=== PATIENT | male | born 1980 | race African-American/Black ===

== ENCOUNTER 2017-10-08 19:44 | Inpatient (IN) | payer SELFPAY ==
[~2017-10-08] VITALS: Ht 188 cm; Wt 90.0 kg
[~2017-10-08 19:44] MED LIST: AMLO10 PO; ASPI325T PO; CARV12.5 PO; CLON.1 PO; CYCL-36 PO; ISOS60 PO
[2017-10-08 19:50] VITALS: BP 264/132; PULSE 120; RESP 30; O2SAT 93
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
[2017-10-08] MEDS ORDERED: NITROGLYCERIN 2% OINT 1 GM PACKET TOP ONE (20:00)
[2017-10-08] MEDS ORDERED: SODIUM CHLORIDE 0.9% FLUSH 10 ML FLUSH IVF PRN (20:00)
[2017-10-08] MEDS ORDERED: hydrALAZINE HCL 20 MG/ML VIAL IV PUSH ONE (20:00)
[2017-10-08] MEDS ORDERED: RESP: ALBUTEROL 2.5 MG/IPRATROPIUM 0.5 MG NEB (SCH) INH ONE (20:00)
[2017-10-08] MEDS ORDERED: LORazepam 2 MG/ML VIAL IV PUSH ONE (20:15)
[2017-10-08 20:26] VITALS: BP_SYST 247; BP_SYST 264; BP_DIAS 132; BP_DIAS 139
[2017-10-08] MEDS ORDERED: niCARdipine INJ 25 MG in SODIUM CHLOR 0.9% 250 ML INJ 250 ML IV PRN (20:30)
[2017-10-08] MEDS ORDERED: niCARdipine INJ 25 MG in SODIUM CHLOR 0.9% 250 ML INJ 240 ML IV ONE (20:30)
--- NOTE | 2017-10-08 20:44 | RADRPT ---
EXAM DATE/TIME: 10/08/2017 20:16 [facility] COMPARISON: CHEST SINGLE AP, December 17, 2015, 12:26. INDICATIONS : Chest pain and shortness of breath. MEDICAL HISTORY : None. SURGICAL HISTORY : None. ENCOUNTER: Initial ACUITY: 1 day PAIN SCORE: 10/10 LOCATION: chest FINDINGS: Focal consolidation is not seen. There is no appreciable pleural effusion for technique. Heart and m ediastinum are unremarkable. There is mild haziness involving the lung bases and the possibility of m ild degree of pulmonary edema difficult to exclude. CONCLUSION: Question of mild haziness lung bases and possibility of mild case of pulmonary edema is d ifficult to exclude. Tariq Becker MD on October 08, 2017 at 20:41 Board Certified Radiologist. This report was verified electronically.
[2017-10-08 20:48] LABS: AUTOMATED NEUTROPHIL # 7.8 TH/MM3 (1.8-7.7); BASOPHIL % 0.5 % (0.0-2.0); EOSINOPHIL % 2.5 % (0.0-4.0); HEMATOCRIT 39.8 % (39.0-51.0); HEMOGLOBIN 13.6 GM/DL (13.0-17.0); LYMPH % 13.5 % (9.0-44.0); LYMPHOCYTE # 1.4 TH/MM3 (1.0-4.8); MEAN CELL VOLUME 86.5 FL (80.0-100.0); MEAN CORPUSCULAR HEMOGLOBIN 29.4 PG (27.0-34.0); MEAN PLATELET VOLUME 9.2 FL (7.0-11.0); MONO % 5.6 % (0.0-8.0); MONOCYTE # 0.6 TH/MM3 (0-0.9); NEUT % 77.9 % (16.0-70.0); PLATELET COUNT 226 TH/MM3 (150-450); RED CELL DISTRIBUTION WIDTH 14.2 % (11.6-17.2); WHITE BLOOD COUNT 10.1 TH/MM3 (4.0-11.0)
[2017-10-08 20:49] LABS: BASOPHIL # 0.1 TH/MM3 (0-0.2); EOSINOPHIL # 0.3 TH/MM3 (0-0.4)
[2017-10-08 20:52] LABS: PROTHROMBIN TIME - PATIENT 9.8 SEC (9.8-11.6)
[2017-10-08 21:05] LABS: BICARBONATE 28.7 MEQ/L (21.0-32.0); CALCIUM 9.1 MG/DL (8.5-10.1); CREATININE 5.83 MG/DL (0.60-1.30); MAGNESIUM 2.3 MG/DL (1.5-2.5)
[2017-10-08 21:11] LABS: TROPONIN I 0.19 NG/ML (0.02-0.05)
[2017-10-08 23:39] VITALS: BP 187/109; PULSE 107; RESP 18; TEMP 97.7; O2SAT 97
[2017-10-09] VITALS (13 sets, daily range): BP systolic 141–205; BP diastolic 73–126; PULSE 72–105; RESP 18–25; TEMP 97.8–98.2; O2SAT 94–100
[2017-10-09] MEDS ORDERED: CARVEDILOL 12.5 MG TAB PO ONE
[2017-10-09] MEDS ORDERED: ISOSORBIDE MONONITRATE 60 MG TAB PO ONE
[2017-10-09] MEDS ORDERED: FUROSEMIDE 40 MG/4 ML VIAL IV PUSH ONE (00:15)
[2017-10-09] MEDS ORDERED: MISCELLANEOUS NURSING INFORMATION XX SCH (00:15)
[2017-10-09] MEDS ORDERED: SODIUM CHLORIDE 0.9% FLUSH 10 ML FLUSH IV FLUSH PRN (00:15)
[2017-10-09] MEDS ORDERED: RESP: ALBUTEROL 2.5 MG/3 ML NEB (PRN) INH (00:15)
[2017-10-09] MEDS ORDERED: MAGNESIUM HYDROXIDE SUSP 30 ML CUP PO PRN (00:15)
[2017-10-09] MEDS ORDERED: SENNOSIDES 8.6 MG TAB PO PRN (00:15)
[2017-10-09] MEDS ORDERED: ONDANSETRON HCL 4 MG/2 ML VIAL IV PUSH PRN (00:15)
[2017-10-09] MEDS ORDERED: BISACODYL 10 MG SUPP RECTAL PRN (00:15)
[2017-10-09] MEDS ORDERED: ACETAMINOPHEN 325 MG TAB PO PRN (00:15)
[2017-10-09] MEDS ORDERED: LACTULOSE SYRUP 20 GM/30 ML CUP PO PRN (00:15)
[2017-10-09] MEDS ORDERED: CHLORHEXIDINE GLUCONATE 2 % 1 PACK (2 CLOTHS) TOP PRN (00:15)
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
[2017-10-09] MEDS ORDERED: ASPIRIN 81 MG CHEW TAB CHEW ONE (01:15)
[2017-10-09] MEDS: ACETAMINOPHEN/HYDROcodone 325 MG/5 MG TAB PO PRN ×3 (01:45→19:36)
[2017-10-09] MEDS: NITROGLYCERIN 2% OINT 1 GM PACKET TOPICAL SCH ×4 (01:46→17:37)
[2017-10-09] MEDS: RESP: ALBUTEROL 2.5 MG/IPRATROPIUM 0.5 MG NEB (SCH) INH ×4 (02:58→20:39)
[2017-10-09 03:46] LABS: CREATININE, RANDOM URINE 45.1 MG/DL
[2017-10-09] MEDS: CHLORHEXIDINE GLUCONATE 2 % 1 PACK (2 CLOTHS) TOP SCH (04:00)
[2017-10-09] MEDS ORDERED: RESP: ALBUTEROL 2.5 MG/IPRATROPIUM 0.5 MG NEB (SCH) NEB (04:00)
[2017-10-09] MEDS: HEPARIN SODIUM - SQ 10,000 UNITS/ML VIAL SQ SCH ×2 (06:17→17:37)
[2017-10-09] MEDS: ISOSORBIDE MONONITRATE 60 MG TAB PO SCH ×2 (06:17→19:36)
[2017-10-09] MEDS ORDERED: niCARdipine INJ 25 MG in SODIUM CHLOR 0.9% 250 ML INJ 240 ML IV PRN ×3 (06:30)
[2017-10-09] MEDS: FAMOTIDINE 20 MG TAB PO SCH ×2 (08:12→19:36)
[2017-10-09] MEDS: DOCUSATE SODIUM 50 MG/SENNA 8.6 MG TAB PO SCH ×2 (08:13→19:30)
[2017-10-09] MEDS: SODIUM CHLORIDE 0.9% FLUSH 10 ML FLUSH IV FLUSH SCH ×2 (08:13→19:39)
[2017-10-09] MEDS: CARVEDILOL 12.5 MG TAB PO SCH ×2 (08:13→19:36)
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
[2017-10-09 10:19] LABS: BICARBONATE 29.3 MEQ/L (21.0-32.0); CALCIUM 8.5 MG/DL (8.5-10.1); CREATININE 5.14 MG/DL (0.60-1.30)
[2017-10-09 10:46] LABS: ALBUMIN 3.1 GM/DL (3.4-5.0); DIRECT BILIRUBIN ADULT 0.2 MG/DL (0.0-0.2)
[2017-10-09 10:55] LABS: CHOLESTEROL/ HDL RATIO 2.82 RATIO; HDL CHOLESTEROL 57.6 MG/DL (40.0-60.0); INDIRECT BILIRUBIN 0.3 MG/DL (0.0-0.8); TOTAL BILIRUBIN ADULT 0.5 MG/DL (0.2-1.0); TOTAL PROTEIN 6.9 GM/DL (6.4-8.2)
[2017-10-09 10:58] LABS: TROPONIN I 0.65 NG/ML (0.02-0.05)
--- NOTE | 2017-10-09 12:05 | EKG ---
Date Performed: 10/08/2017 Time Performed: 20:41:45 PTAGE: 36 years EKG: SINUS TACHYCARDIA POSSIBLE RIGHT ATRIAL ENLARGEMENT POSSIBLE LEFT ATRIAL ENLARGEMENT LEFT V ENTRICULAR HYPERTROPHY AND ST-T CHANGE ABNORMAL ECG Compared to PREVIOUS TRACING , the LVH changes are new and the atrial abnormality is somewhat more pr ominent. PREVIOUS TRACIN12/17/2015 23.25 DOCTOR: Cisco Rivero Interpretating Date/Time 10/09/2017 12:04:51
[2017-10-09] MEDS ORDERED: POTASSIUM CHLORIDE 25 MEQ EFFERVESCENT TAB PO ONE (12:30)
[2017-10-09 15:16] LABS: BICARBONATE 27.7 MEQ/L (21.0-32.0); CALCIUM 8.6 MG/DL (8.5-10.1); CREATININE 5.1 MG/DL (0.60-1.30)
[2017-10-09] MEDS: hydrALAZINE HCL 20 MG/ML VIAL IV PUSH PRN ×2 (16:03→18:33)
[2017-10-09] MEDS: LABETALOL HCL 100 MG/20 ML VIAL IV PUSH PRN ×3 (16:03→18:33)
[2017-10-10] VITALS (26 sets, daily range): BP systolic 144–192; BP diastolic 68–111; PULSE 74–95; RESP 16–21; TEMP 98–98.2; O2SAT 96–99
[2017-10-10] MEDS: NITROGLYCERIN 2% OINT 1 GM PACKET TOPICAL SCH ×5 (00:39→23:23)
[2017-10-10] MEDS: diphenhydrAMINE HCL 25 MG CAP PO PRN ×3 (01:20→18:37)
[2017-10-10] MEDS: RESP: ALBUTEROL 2.5 MG/IPRATROPIUM 0.5 MG NEB (SCH) INH ×4 (03:17→20:39)
[2017-10-10] MEDS: LABETALOL HCL 100 MG/20 ML VIAL IV PUSH PRN ×6 (03:23→22:20)
[2017-10-10] MEDS: CHLORHEXIDINE GLUCONATE 2 % 1 PACK (2 CLOTHS) TOP SCH (03:34)
[2017-10-10 04:00] LABS: AUTOMATED NEUTROPHIL # 5.5 TH/MM3 (1.8-7.7); BASOPHIL % 0.4 % (0.0-2.0); EOSINOPHIL # 0.1 TH/MM3 (0-0.4); EOSINOPHIL % 1.4 % (0.0-4.0); HEMATOCRIT 34.4 % (39.0-51.0); HEMOGLOBIN 11.8 GM/DL (13.0-17.0); LYMPH % 13.5 % (9.0-44.0); MEAN CELL VOLUME 85.7 FL (80.0-100.0); MEAN CORPUSCULAR HEMOGLOBIN 29.5 PG (27.0-34.0); MEAN CORPUSCULAR HGB CONC 34.4 % (32.0-36.0); MEAN PLATELET VOLUME 8.6 FL (7.0-11.0); MONO % 10.3 % (0.0-8.0); MONOCYTE # 0.8 TH/MM3 (0-0.9); NEUT % 74.4 % (16.0-70.0); PLATELET COUNT 185 TH/MM3 (150-450); RED BLOOD COUNT 4.02 MIL/MM3 (4.50-5.90); RED CELL DISTRIBUTION WIDTH 13.8 % (11.6-17.2); WHITE BLOOD COUNT 7.4 TH/MM3 (4.0-11.0)
[2017-10-10 04:21] LABS: BICARBONATE 26.6 MEQ/L (21.0-32.0); CALCIUM 8.5 MG/DL (8.5-10.1); CREATININE 5.11 MG/DL (0.60-1.30)
[2017-10-10] MEDS: ISOSORBIDE MONONITRATE 60 MG TAB PO SCH ×2 (06:24→20:12)
[2017-10-10] MEDS: HEPARIN SODIUM - SQ 10,000 UNITS/ML VIAL SQ SCH ×2 (06:24→17:15)
[2017-10-10] MEDS: FAMOTIDINE 20 MG TAB PO SCH ×2 (08:19→20:13)
[2017-10-10] MEDS: SODIUM CHLORIDE 0.9% FLUSH 10 ML FLUSH IV FLUSH SCH ×2 (08:19→20:18)
[2017-10-10] MEDS: CARVEDILOL 12.5 MG TAB PO SCH ×2 (08:19→20:12)
[2017-10-10] MEDS: DOCUSATE SODIUM 50 MG/SENNA 8.6 MG TAB PO SCH ×2 (08:19→20:12)
[2017-10-10] MEDS ORDERED: POTASSIUM CHLORIDE 10 MEQ CONTROLLED RELEASE TAB PO ONE ×2 (09:00)
--- NOTE | 2017-10-10 09:33 | HHI.PR ---
Subjective Remarks c/o swelling of glands on BL cheeks just before the ears Denies tenderness, denies fevers, chills. Objective Vitals Vital Signs Date Time Temp Pulse Resp B/P (MAP) Pulse Ox O2 Delivery O2 Flow Rate FiO2 10/10/17 06:08 84 10/10/17 05:18 75 10/10/17 04:23 80 10/10/17 03:47 144/82 (102) 10/10/17 03:35 98.0 79 20 180/106 (130) 96 10/10/17 03:35 77 10/10/17 02:48 77 10/10/17 01:07 76 10/10/17 00:02 83 10/09/17 23:15 84 10/09/17 23:15 98.2 82 18 159/87 (111) 100 10/09/17 20:00 98.2 88 20 149/73 (98) 99 10/09/17 20:00 88 10/09/17 16:00 74 10/09/17 16:00 98.1 79 20 205/126 (152) 98 10/09/17 12:00 97.8 72 24 165/98 (120) 100 10/09/17 12:00 72 I/O 10/09/17 10/09/17 10/09/17 10/10/17 10/10/17 10/10/17 07:00 15:00 23:00 07:00 15:00 23:00 Intake Total 2400 ml 960 ml 960 ml Output Total 6050 ml 450 ml 340 ml Balance -3650 ml 510 ml 620 ml Intake Oral 1200 ml 960 ml 960 ml IV Total 1200 ml Output Urine Total 6050 ml 450 ml 340 ml # Voids 3 # Bowel Movements 0 0 0 Result Diagram: 10/10/17 0327 10/10/17 0327 Imaging Last Impressions Renal Ultrasound 10/09/17 0000 Signed Impressions: Service Date/Time: Monday, October 09, 2017 08:21 - CONCLUSION: 1. Kidneys are borderline echogenic which can be seen with medical renal disease. 2. Simple right renal cyst. 3. Possible nonobstructing calculus left kidney measures 3 mm. Onofre Salinas MD Chest X-Ray 10/08/171953 Signed Impressions: Service Date/Time: Sunday, October 08, 2017 20:16 - CONCLUSION: Question of mild haziness lung bases and possibility of mild case of pulmonary edema is difficult to exclude. Tariq Becker MD Objective Remarks AAOx3 Enlarged aprotid glands which are rubbery to palpation and non tender. Clear lungs BL S1S2 RRR, no MRG soft abdomen, BS (+) no edema in lower extremities Medications and IVs Current Medications Medications (Trade) Dose Ordered Sig/Jossue Route Start Time Stop Time Status Last Admin (Nitroglycerin 2% Oint) 1 inch Q6HR TOPICAL 10/09/17 00:00 10/10/17 11:25 (Norvasc) 10 mg DAILY PO 10/09/17 09:00 10/10/17 08:18 (Coreg) 25 mg Q12HR PO 10/09/17 09:00 10/10/17 08:19 (Imdur) 60 mg BID@07,21 PO 10/09/17 07:00 10/10/17 06:24 (NS Flush) 2 ml UNSCH PRN IV FLUSH 10/09/17 00:15 (NS Flush) 2 ml BID IV FLUSH 10/09/17 09:00 10/10/17 08:19 (Tylenol) 650 mg Q6H PRN PO 10/09/17 00:15 10/09/17 13:02 ([place] 5-325 Mg) 1 tab Q4H PRN PO 10/09/17 00:15 10/09/17 19:36 (Pepcid) 20 mg Q12HR PO 10/09/17 09:00 10/10/17 08:19 (Zofran Inj) 4 mg Q6H PRN IV PUSH 10/09/17 00:15 10/09/17 08:17 (Duoneb Neb) 1 ampule Q6HR NEB INH 10/09/17 04:00 10/10/17 09:12 (Albuterol Neb) 2.5 mg Q2HR NEB PRN INH 10/09/17 00:15 (Heparin Inj) 5,000 units Q12H SQ 10/09/17 06:00 10/10/17 06:24 Miscellaneous Information 1 Q361D XX 10/09/17 00:15 10/09/17 00:15 (Chlorhexidine 2% Cloth) 3 pack Taper DAILY@04 [facility] 10/09/17 04:00 10/05/18 03:59 10/09/17 04:00 (Chlorhexidine 2% Cloth) 3 pack UNSCH PRN TOP 10/09/17 00:15 (Shayna-Colace) 1 tab BID PO 10/09/17 09:00 (Milk Of Magnesia Liq) 30 ml Q12H PRN PO 10/09/17 00:15 (Senokot) 17.2 mg Q12H PRN PO 10/09/17 00:15 (Dulcolax Supp) 10 mg DAILY PRN RECTAL 10/09/17 00:15 (Lactulose Liq) 30 ml DAILY PRN PO 10/09/17 00:15 (Trandate Inj) 20 mg Q15M PRN IV PUSH 10/09/17 09:45 10/10/17 09:52 (Apresoline Inj) 10 mg Q30M PRN IV PUSH 10/09/17 09:45 10/09/17 18:33 (Benadryl) 25 mg Q6H PRN PO 10/10/17 01:15 10/10/17 08:19 (Aldactone) 25 mg DAILY PO 10/10/17 12:00 10/10/17 11:25 Urinary Catheter: No Vascular Central Line Catheter: No A/P Problem List: (1) Hypertensive emergency ICD Code: I16.1 - Hypertensive emergency Status: Acute Plan: The patient initially was admitted to the intensive care unit and started on Cardene drip to target initial reduction mean arterial pressure of 25 -30%, MIP less than 120. Patient also started on nitroglycerin paste. Imdur, Norvasc, Coreg resumed. Chest x-ray showed pulmonary edema, status post Lasix 40 mg IV. EKG sinus tachycardia rate of 106. LVH by voltage criteria. Nonspecific ST changes in V5 V6. No ST elevation. Echo 03/27/15-03/27/15ejection fraction 30-35% with diffuse hypokinesis. Mild to moderate MR. Exercise Stress 03/18/12negative. Prior workup for secondary hypertension included negative workup for pheo, normal aldosterone and renin. Consider imaging for renal artery stenosis. Urine toxicology screen is so far positive for cannabinoids. Continue current antihypertensive medications with amlodipine, carvedilol, spironolactone. (2) Parotitis ICD Code: K11.20 - Sialoadenitis, unspecified Plan: The patient has painless swelling of bilateral parotid glands. Suspect likely due to a sialolith. We'll consult ENT for further recommendations. (3) Hypokalemia ICD Code: E87.6 - Hypokalemia Status: Acute Plan: Asher 3.1. Replace orally and continue to monitor BMP. Check magnesium. (4) Acute kidney injury ICD Code: N17.9 - Acute kidney injury Status: Acute Plan: Flagyl consulted. Creatinine elevated at 5.1. Patient has chronic kidney disease stage IV with previous baseline creatinine of 2.07 in 2016. Acute kidney injury on chronic kidney disease stage IV versus progressive kidney disease secondary to hypertensive nephropathy. Kidney ultrasound and consistent with medical renal disease area there is a simple right renal cyst. Possible nonobstructing calculus in the left kidney which measures 3 mm. (5) Hyperglycemia ICD Code: R73.9 - Hyperglycemia, unspecified Status: Acute Plan: Blood glucose has been slightly elevated. I will check hemoglobin A1c. Assessment and Plan GI prophylaxis: PPI. DVT prophylaxis: SCDs. Discharge Planning ENT consulted. awaiting clinical improvement. Kameron Cooper MD Oct 10, 2017 09:33
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
[2017-10-10] MEDS: SPIRONOLACTONE 25 MG TAB PO SCH (11:25)
[2017-10-10 11:59] LABS: BACTERIA, URINE OCC /hpf; BILIRUBIN, URINE NEG (NEG); BLOOD, URINE NEG (NEG); GLUCOSE,URINE TRACE mg/dL (NEG); KETONE, URINE NEG (NEG); MUCUS URINE FEW /lpf (OCC); NITRITE,URINE NEG (NEG); SQUAMOUS EPITHELIAL CELL URINE <1 /hpf (0-5); URINE COLOR YELLOW (YELLW/STRAW); URINE LEUKOCYTE ESTERASE MOD (NEG); WHITE BLOOD CELL CLUMPS RARE
[2017-10-10 12:04] LABS: CREATININE, RANDOM URINE 169.5 MG/DL
[2017-10-10 13:12] LABS: COMPLEMENT C3 106 MG/DL (90-180); COMPLEMENT C4 33 MG/DL (10-40)
[2017-10-10 16:19] LABS: HEPATITIS A AB IGM NEGATIVE (NEGATIVE); HEPATITIS B CORE AB IGM NEGATIVE (NEGATIVE); HEPATITIS B SURFACE ANTIGEN NEGATIVE (NEGATIVE); HEPATITIS C AB IgG NEGATIVE (NEGATIVE)
[2017-10-10] MEDS: hydrALAZINE HCL 20 MG/ML VIAL IV PUSH PRN (17:19)
[2017-10-10] MEDS: ACETAMINOPHEN/HYDROcodone 325 MG/5 MG TAB PO PRN ×2 (18:37→22:19)
[2017-10-11] VITALS (25 sets, daily range): BP systolic 144–191; BP diastolic 82–117; PULSE 75–97; RESP 16–20; TEMP 97.9–98.3; O2SAT 97–99
[2017-10-11] MEDS: RESP: ALBUTEROL 2.5 MG/IPRATROPIUM 0.5 MG NEB (SCH) INH ×4 (03:34→20:28)
[2017-10-11] MEDS: CHLORHEXIDINE GLUCONATE 2 % 1 PACK (2 CLOTHS) TOP SCH (04:00)
[2017-10-11 04:22] LABS: HEMATOCRIT 34.8 % (39.0-51.0); HEMOGLOBIN 11.9 GM/DL (13.0-17.0); MEAN CELL VOLUME 86.1 FL (80.0-100.0); MEAN CORPUSCULAR HEMOGLOBIN 29.3 PG (27.0-34.0); PLATELET COUNT 183 TH/MM3 (150-450); RED BLOOD COUNT 4.05 MIL/MM3 (4.50-5.90); WHITE BLOOD COUNT 6.5 TH/MM3 (4.0-11.0)
[2017-10-11 04:45] LABS: BICARBONATE 26.8 MEQ/L (21.0-32.0); CALCIUM 8.8 MG/DL (8.5-10.1); CREATININE 5.39 MG/DL (0.60-1.30); MAGNESIUM 2.2 MG/DL (1.5-2.5); PHOSPHORUS 4.2 MG/DL (2.5-4.9)
[2017-10-11] MEDS: ISOSORBIDE MONONITRATE 60 MG TAB PO SCH ×2 (06:00→19:59)
[2017-10-11] MEDS: ACETAMINOPHEN/HYDROcodone 325 MG/5 MG TAB PO PRN ×3 (06:00→19:59)
[2017-10-11] MEDS: NITROGLYCERIN 2% OINT 1 GM PACKET TOPICAL SCH ×4 (06:00→22:53)
[2017-10-11] MEDS: HEPARIN SODIUM - SQ 10,000 UNITS/ML VIAL SQ SCH ×2 (06:00→17:45)
[2017-10-11] MEDS: SODIUM CHLORIDE 0.9% FLUSH 10 ML FLUSH IV FLUSH SCH ×2 (08:30→20:03)
[2017-10-11] MEDS: CARVEDILOL 12.5 MG TAB PO SCH ×2 (08:31→19:59)
[2017-10-11] MEDS: DOCUSATE SODIUM 50 MG/SENNA 8.6 MG TAB PO SCH ×2 (08:31→20:02)
[2017-10-11] MEDS: SPIRONOLACTONE 25 MG TAB PO SCH (08:31)
[2017-10-11] MEDS: FAMOTIDINE 20 MG TAB PO SCH ×2 (08:31→19:59)
[2017-10-11] MEDS ORDERED: DOXAZOSIN MESYLATE 2 MG TAB PO ONE (11:00)
--- NOTE | 2017-10-11 16:17 | HHI.PR ---
Subjective Remarks Deferred entry - patient seen earlier at 9:30 am Patient denies cp/sob States swelling on cheeks is slightly improved. Denies any pain. Afebrile. Objective Vitals Vital Signs Date Time Temp Pulse Resp B/P (MAP) Pulse Ox O2 Delivery O2 Flow Rate FiO2 10/11/17 15:20 98.1 78 20 158/86 (110) 97 10/11/17 15:00 88 10/11/17 14:00 82 10/11/17 13:00 84 10/11/17 12:00 80 10/11/17 11:33 98.3 76 20 144/82 (102) 97 10/11/17 11:00 76 10/11/17 10:00 84 10/11/17 09:00 89 10/11/17 08:00 88 10/11/17 07:57 98.0 78 20 188/117 (140) 97 10/11/17 07:00 20 10/11/17 07:00 85 10/11/17 06:12 88 10/11/17 05:22 89 10/11/17 04:15 84 10/11/17 03:24 98.2 78 20 157/93 (114) 98 10/11/17 03:24 75 10/11/17 02:00 78 10/11/17 01:30 84 10/11/17 00:04 75 10/10/17 23:00 75 10/10/17 23:00 98.0 82 21 175/107 (129) 98 10/10/17 22:30 87 10/10/17 21:30 93 10/10/17 20:00 88 10/10/17 19:40 98.1 88 20 176/102 (126) 99 10/10/17 19:40 93 10/10/17 18:03 95 10/10/17 17:39 175/110 (131) 10/10/17 17:06 86 I/O 10/10/17 10/10/17 10/10/17 10/11/17 10/11/17 10/11/17 07:00 15:00 23:00 07:00 15:00 23:00 Intake Total 960 ml 720 ml 720 ml Output Total 340 ml 1000 ml 350 ml Balance 620 ml -280 ml 370 ml Intake Oral 960 ml 720 ml 720 ml Output Urine Total 340 ml 1000 ml 350 ml # Voids 3 4 # Bowel Movements 0 1 Result Diagram: 10/11/17 0410 10/11/17 0410 Imaging Last Impressions Renal Ultrasound 10/09/17 0000 Signed Impressions: Service Date/Time: Monday, October 09, 2017 08:21 - CONCLUSION: 1. Kidneys are borderline echogenic which can be seen with medical renal disease. 2. Simple right renal cyst. 3. Possible nonobstructing calculus left kidney measures 3 mm. Onofre Salinas MD Chest X-Ray 10/08/171953 Signed Impressions: Service Date/Time: Sunday, October 08, 2017 20:16 - CONCLUSION: Question of mild haziness lung bases and possibility of mild case of pulmonary edema is difficult to exclude. Tariq Becker MD Objective Remarks AAOx3 Enlarged aprotid glands which are rubbery to palpation and non tender. Clear lungs BL S1S2 RRR, no MRG soft abdomen, BS (+) no edema in lower extremities Medications and IVs Current Medications Medications (Trade) Dose Ordered Sig/Jossue Route Start Time Stop Time Status Last Admin (Nitroglycerin 2% Oint) 1 inch Q6HR TOPICAL 10/09/17 00:00 10/11/17 11:26 (Norvasc) 10 mg DAILY PO 10/09/17 09:00 10/11/17 08:31 (Coreg) 25 mg Q12HR PO 10/09/17 09:00 10/11/17 08:31 (Imdur) 60 mg BID@07,21 PO 10/09/17 07:00 10/11/17 06:00 (NS Flush) 2 ml UNSCH PRN IV FLUSH 10/09/17 00:15 (NS Flush) 2 ml BID IV FLUSH 10/09/17 09:00 10/11/17 08:30 (Tylenol) 650 mg Q6H PRN PO 10/09/17 00:15 10/09/17 13:02 ([place] 5-325 Mg) 1 tab Q4H PRN PO 10/09/17 00:15 10/11/17 15:56 (Zofran Inj) 4 mg Q6H PRN IV PUSH 10/09/17 00:15 10/09/17 08:17 (Duoneb Neb) 1 ampule Q6HR NEB INH 2/4/18 04:00 10/11/17 12:49 (Albuterol Neb) 2.5 mg Q2HR NEB PRN INH 10/09/17 00:15 (Heparin Inj) 5,000 units Q12H SQ 10/09/17 06:00 10/11/17 06:00 Miscellaneous Information 1 Q361D XX 10/09/17 00:15 10/09/17 00:15 (Chlorhexidine 2% Cloth) 3 pack Taper DAILY@04 TOP 10/09/17 04:00 10/05/18 03:59 10/09/17 04:00 (Chlorhexidine 2% Cloth) 3 pack UNSCH PRN TOP 10/09/17 00:15 (Shayna-Colace) 1 tab BID PO 10/09/17 09:00 10/10/17 20:12 (Milk Of Magnesia Liq) 30 ml Q12H PRN PO 10/09/17 00:15 (Senokot) 17.2 mg Q12H PRN PO 10/09/17 00:15 (Dulcolax Supp) 10 mg DAILY PRN RECTAL 10/09/17 00:15 (Lactulose Liq) 30 ml DAILY PRN PO 10/09/17 00:15 (Trandate Inj) 20 mg Q15M PRN IV PUSH 10/09/17 09:45 10/10/17 22:20 (Apresoline Inj) 10 mg Q30M PRN IV PUSH 10/09/17 09:45 10/10/17 17:19 (Benadryl) 25 mg Q6H PRN PO 10/10/17 01:15 10/10/17 18:37 (Aldactone) 25 mg DAILY PO 10/10/17 12:00 10/11/17 08:31 (Pepcid) 10 mg Q12HR PO 10/10/17 21:00 10/11/17 08:31 (Cardura) 2 mg DAILY PO 10/12/17 09:00 Urinary Catheter: No Vascular Central Line Catheter: No A/P Problem List: (1) Hypertensive emergency ICD Code: I16.1 - Hypertensive emergency Status: Acute Plan: The patient initially was admitted to the intensive care unit and started on Cardene drip to target initial reduction mean arterial pressure of 25 -30%, MIP less than 120. Patient also started on nitroglycerin paste. Imdur, Norvasc, Coreg resumed. Chest x-ray showed pulmonary edema, status post Lasix 40 mg IV. EKG sinus tachycardia rate of 106. LVH by voltage criteria. Nonspecific ST changes in V5 V6. No ST elevation. Echo 03/27/15-03/27/15ejection fraction 30-35% with diffuse hypokinesis. Mild to moderate MR. Exercise Stress 03/18/12negative. Prior workup for secondary hypertension included negative workup for pheo, normal aldosterone and renin. Consider imaging for renal artery stenosis. Urine toxicology screen is so far positive for cannabinoids. Continue current antihypertensive medications with amlodipine, carvedilol, spironolactone. 10/11 BP severely elevated with a bp of 188/117 - Continue above medications and start on Cardura 2 mg po daily. continue to monitor vital signs. (2) Parotitis ICD Code: K11.20 - Sialoadenitis, unspecified Plan: The patient has painless swelling of bilateral parotid glands. Suspect likely due to a sialolith. ENT consulted. (3) Hypokalemia ICD Code: E87.6 - Hypokalemia Status: Acute Plan: Hypokalemia resolved. continue to monitor BMP and replace potassium as needed. (4) Acute kidney injury ICD Code: N17.9 - Acute kidney injury Status: Acute Plan: Flagyl consulted. Creatinine elevated at 5.1. Patient has chronic kidney disease stage IV with previous baseline creatinine of 2.07 in 2016. Acute kidney injury on chronic kidney disease stage IV versus progressive kidney disease secondary to hypertensive nephropathy. Kidney ultrasound and consistent with medical renal disease area there is a simple right renal cyst. Possible nonobstructing calculus in the left kidney which measures 3 mm. (5) Hyperglycemia ICD Code: R73.9 - Hyperglycemia, unspecified Status: Acute Plan: Blood glucose has been slightly elevated. I will check hemoglobin A1c. Assessment and Plan GI prophylaxis: PPI. DVT prophylaxis: SCDs. Discharge Planning ENT consulted. Pending improvement of blood pressure. Kameron Cooper MD Oct 11, 2017 16:17
--- NOTE | 2017-10-11 17:27 | ECHRPT ---
Indication: SHORTNESS OF BREATH CONCLUSIONS Mildly dilated left ventricle. Severe concentric left ventricular hypertrophy. The left ventricular systolic function is severely reduced with an estimated ejection fraction in th e range of 30-35%. There are findings consistent with hypertrophic cardiomyopathy. The left atrial size is smgwvieh-rd-jdyzgrnu dilated. The right atrial size is vktelhyf-mm-ceewvxsx dilated. Mymw-xe-mjplykzu mitral valve regurgitation. Aortic valve sclerosis is present. Kjid-he-megwytgo aortic valve regurgitation. There is trace tricuspid valve regurgitation. The estimated pulmonary arterial pressure is 41.6 mmHg. BP: 180 / 106 HR: 79 Rhythm: Sinus MEASUREMENTS (Male / Female) Normal Values Technical Quality:Fair 2D ECHO LV Diastolic Diameter PLAX 6.1 cm 4.2 - 5.9 / 3.9 - 5.3 cm LV Systolic Diameter PLAX 5.4 cm IVS Diastolic Thickness 1.7 cm 0.6 - 1.0 / 0.6 - 0.9 cm LVPW Diastolic Thickness 1.7 cm 0.6 - 1.0 / 0.6 - 0.9 cm LV Relative Wall Thickness 0.6 RV Internal Dim ED PLAX 1.4 cm LVOT Diameter 2.4 cm Aortic Root Diameter 3.4 cm LA Systolic Diameter LX 4.4 cm 3.0 - 4.0 / 2.7 - 3.8 cm M-MODE AV Cusp Separation MM 2.5 cm DOPPLER AV Peak Velocity 146.0 cm/s AV Peak Gradient 8.5 mmHg AV Mean Gradient 5.0 mmHg AV Velocity Time Integral 24.8 cm AI Peak Velocity 578.0 cm/s AI Peak Gradient 133.6 mmHg AI Pressure Half Time 622.0 ms LVOT Peak Velocity 84.2 cm/s LVOT Peak Gradient 2.8 mmHg LVOT Velocity Time Integral 12.8 cm AV Area Cont Eq vti 2.3 cm AV Area Cont Eq pk 2.6 cm Mitral E Point Velocity 71.1 cm/s Mitral A Point Velocity 59.7 cm/s Mitral E to A Ratio 1.2 LV E' Lateral Velocity 6.8 cm/s Mitral E to LV E' Lateral Ratio 10.4 LV E' Septal Velocity 5.4 cm/s Mitral E to LV E' Septal Ratio 13.3 TR Peak Velocity 281.0 cm/s TR Peak Gradient 31.6 mmHg Right Atrial Pressure 10.0 mmHg Pulmonary Artery Systolic Pressu 41.6 mmHg Right Ventricular Systolic Press 41.6 mmHg PV Peak Velocity 64.7 cm/s PV Peak Gradient 1.7 mmHg FINDINGS LEFT VENTRICLE Mildly dilated left ventricle. Severe concentric left ventricular hypertrophy. The left ventricular systolic function is severely reduced with an estimated ejection fraction in th e range of 30-35%. There are findings consistent with hypertrophic cardiomyopathy. RIGHT VENTRICLE Normal right ventricular size and systolic function. LEFT ATRIUM The left atrial size is mjpmkgrx-ly-nembfrxq dilated. RIGHT ATRIUM The right atrial size is bpgwfohy-dk-hpljofcm dilated. ATRIAL SEPTUM No atrial level shunt is demonstrated by color flow Doppler interrogation. AORTA The aortic root and proximal ascending aorta are normal in size on limited imaging. MITRAL VALVE Oijg-lb-cfrzdkws mitral valve regurgitation. AORTIC VALVE Aortic valve sclerosis is present. Tczv-rg-nzvhewsz aortic valve regurgitation. TRICUSPID VALVE There is trace tricuspid valve regurgitation. The estimated pulmonary arterial pressure is 41.6 mmHg. PULMONARY VALVE No pulmonary valve regurgitation or stenosis. VESSELS The inferior vena cava is normal in size. PERICARDIUM No pericardial effusion. Micah Barba MD, FACC (Electronically Signed) Final Date:11 October 2017 17:25
--- NOTE | 2017-10-11 20:21 | HHI.NPPN ---
Subjective History of Present Illness 36 year old with HTN crises ARF/CKD Objective Data Data 10/11/17 10/12/17 19:00 07:00 Intake Total 950 ml Balance 950 ml Intake Oral 950 ml # Voids 4 # Bowel Movements 0 Vital Signs Date Time Temp Pulse Resp B/P (MAP) Pulse Ox O2 Delivery O2 Flow Rate FiO2 10/11/17 15:20 98.1 78 20 158/86 (110) 97 10/11/17 15:00 88 10/11/17 14:00 82 10/11/17 13:00 84 10/11/17 12:00 80 10/11/17 11:33 98.3 76 20 144/82 (102) 97 10/11/17 11:00 76 10/11/17 10:00 84 10/11/17 09:00 89 10/11/17 08:00 88 10/11/17 07:57 98.0 78 20 188/117 (140) 97 10/11/17 07:00 20 10/11/17 07:00 85 10/11/17 06:12 88 10/11/17 05:22 89 10/11/17 04:15 84 10/11/17 03:24 98.2 78 20 157/93 (114) 98 10/11/17 03:24 75 10/11/17 02:00 78 10/11/17 01:30 84 10/11/17 00:04 75 10/10/17 23:00 75 10/10/17 23:00 98.0 82 21 175/107 (129) 98 10/10/17 22:30 87 10/10/17 21:30 93 -: 10/11/17 0410 10/11/17 0410 Physical Exam General Appearance: Well Developed, Well Nourished Neck Neck Exam: Neck Supple Pulmonary Resp Exam: Clear Bilaterally, Breath Sounds Equal Cardiology CV Exam: Regular, Normal Sinus Rhythm Gastrointestinal/Abdomen GI Exam: Soft, Non-Tender, Bowel Sounds Present Extremeties Extremities Exam: No Edema Neurologic Neuro Exam: Alert, Awake Assessment/Plan Problem List: (1) Acute renal failure ICD Codes: N17.9 - Acute kidney failure, unspecified Status: Acute Plan: Patient has hypertensive kidney injury with advanced renal failure This progress as compared to December 2015 CR 5.39 HIGH NON UREMIC No acute indication for dialysis kidney biopsy discussed he will do it tomorrow he wants to go home Patient likely has Hypertensive kidney disease I told him he has advance kidney disease and he may need dialysis soon he needs close follow up as out patient START Rocaltrol high PTH (2) CKD (chronic kidney disease) stage 4, GFR 15-29 ml/min ICD Codes: N18.4 - Chronic kidney disease, stage 4 (severe) Status: Chronic Plan: He has progress to chronic kidney disease stage IV GFR is 16 Likely etiologies considering his hypertension and will check for other etiologies Ultrasound kidneys was reviewed showed simple cyst right upper pole RIGHT KIDNEY: 10.2 x 4.6 x 4.2 cm LEFT KIDNEY: 9.4 x 3.8 x 4.7 cm (3) Hypertensive urgency ICD Codes: I10 - Hypertensive urgency Status: Resolved Plan: Need better control of blood pressure Noncompliance played a role Ajith Griffith MD Oct 11, 2017 20:21
[2017-10-11] MEDS: hydrALAZINE HCL 20 MG/ML VIAL IV PUSH PRN (22:56)
[2017-10-12] VITALS (31 sets, daily range): BP systolic 13–189; BP diastolic 74–116; PULSE 73–97; RESP 16–18; TEMP 97.7–98.3; O2SAT 96–100
[2017-10-12] MEDS: ACETAMINOPHEN/HYDROcodone 325 MG/5 MG TAB PO PRN ×4 (00:45→20:15)
[2017-10-12] MEDS: RESP: ALBUTEROL 2.5 MG/IPRATROPIUM 0.5 MG NEB (SCH) INH ×4 (02:35→21:33)
[2017-10-12] MEDS: CHLORHEXIDINE GLUCONATE 2 % 1 PACK (2 CLOTHS) TOP SCH (04:00)
[2017-10-12 04:46] LABS: HEMATOCRIT 35.2 % (39.0-51.0); HEMOGLOBIN 11.9 GM/DL (13.0-17.0); MEAN CELL VOLUME 86.4 FL (80.0-100.0); MEAN CORPUSCULAR HEMOGLOBIN 29.2 PG (27.0-34.0); MEAN CORPUSCULAR HGB CONC 33.8 % (32.0-36.0); MEAN PLATELET VOLUME 8.5 FL (7.0-11.0); PLATELET COUNT 196 TH/MM3 (150-450); RED BLOOD COUNT 4.07 MIL/MM3 (4.50-5.90); RED CELL DISTRIBUTION WIDTH 14.1 % (11.6-17.2); WHITE BLOOD COUNT 5.8 TH/MM3 (4.0-11.0)
[2017-10-12 05:10] LABS: BICARBONATE 28.5 MEQ/L (21.0-32.0); CALCIUM 8.9 MG/DL (8.5-10.1); CREATININE 5.29 MG/DL (0.60-1.30)
[2017-10-12] MEDS: NITROGLYCERIN 2% OINT 1 GM PACKET TOPICAL SCH ×4 (05:36→23:30)
[2017-10-12] MEDS: ISOSORBIDE MONONITRATE 60 MG TAB PO SCH ×2 (05:46→20:13)
[2017-10-12] MEDS: HEPARIN SODIUM - SQ 10,000 UNITS/ML VIAL SQ SCH ×2 (05:46→18:05)
[2017-10-12] MEDS: SPIRONOLACTONE 25 MG TAB PO SCH (08:05)
[2017-10-12] MEDS: DOCUSATE SODIUM 50 MG/SENNA 8.6 MG TAB PO SCH ×2 (08:05→20:15)
[2017-10-12] MEDS: FAMOTIDINE 20 MG TAB PO SCH ×2 (08:06→20:14)
[2017-10-12] MEDS: CARVEDILOL 12.5 MG TAB PO SCH ×2 (08:06→20:14)
[2017-10-12] MEDS: diphenhydrAMINE HCL 25 MG CAP PO PRN (08:09)
[2017-10-12] MEDS ORDERED: DOXAZOSIN MESYLATE 2 MG TAB PO SCH (09:00)
[2017-10-12] MEDS: hydrALAZINE HCL 20 MG/ML VIAL IV PUSH PRN ×2 (09:58→18:09)
[2017-10-12] MEDS: SODIUM CHLORIDE 0.9% FLUSH 10 ML FLUSH IV FLUSH SCH ×2 (09:59→20:15)
--- NOTE | 2017-10-12 11:14 | HHI.NPPN ---
Subjective History of Present Illness 36 year old with HTN crisis ARF/CKD Objective Data Data Vital Signs Date Time Temp Pulse Resp B/P (MAP) Pulse Ox O2 Delivery O2 Flow Rate FiO2 10/12/17 06:24 83 10/12/17 05:06 82 10/12/17 04:34 84 10/12/17 03:39 80 10/12/17 03:39 97.7 83 17 146/82 (103) 96 10/12/17 02:33 80 10/12/17 01:17 84 10/12/17 00:04 94 10/11/17 23:48 98.1 84 17 173/99 (123) 99 10/11/17 23:00 89 10/11/17 22:00 92 10/11/17 21:20 91 10/11/17 20:15 89 10/11/17 20:15 97.9 87 16 191/115 (140) 98 10/11/17 19:20 97 10/11/17 15:20 98.1 78 20 158/86 (110) 97 10/11/17 15:00 88 10/11/17 14:00 82 10/11/17 13:00 84 10/11/17 12:00 80 10/11/17 11:33 98.3 76 20 144/82 (102) 97 -: 10/12/17 0421 10/12/17 0421 Physical Exam General Appearance: Well Developed, Well Nourished Neck Neck Exam: Neck Supple Pulmonary Resp Exam: Clear Bilaterally, Breath Sounds Equal Cardiology CV Exam: Regular, Normal Sinus Rhythm Gastrointestinal/Abdomen GI Exam: Soft, Non-Tender, Bowel Sounds Present Extremeties Extremities Exam: No Edema Neurologic Neuro Exam: Alert, Awake Assessment/Plan Problem List: (1) Acute renal failure ICD Codes: N17.9 - Acute kidney failure, unspecified Status: Acute Plan: Patient has hypertensive kidney injury with advanced renal failure This progress as compared to December 2015 CR 5.2 HIGH NON UREMIC No acute indication for dialysis kidney biopsy discussed again he said he will do it if given sedation BP high add Hydralazine 25 mg TID he wants to go home Patient likely has Hypertensive kidney disease I told him he has advance kidney disease and he may need dialysis soon he needs close follow up as out patient on Rocaltrol high PTH (2) CKD (chronic kidney disease) stage 4, GFR 15-29 ml/min ICD Codes: N18.4 - Chronic kidney disease, stage 4 (severe) Status: Chronic Plan: He has progress to chronic kidney disease stage IV GFR is 16 Likely etiologies considering his hypertension and will check for other etiologies Ultrasound kidneys was reviewed showed simple cyst right upper pole RIGHT KIDNEY: 10.2 x 4.6 x 4.2 cm LEFT KIDNEY: 9.4 x 3.8 x 4.7 cm (3) Hypertensive urgency ICD Codes: I10 - Hypertensive urgency Status: Resolved Plan: Need better control of blood pressure Noncompliance played a role Ajith Griffith MD Oct 12, 2017 11:14
[2017-10-12] MEDS ORDERED: LIDOCAINE HCL 1% 20 ML VIAL ONE (12:29)
[2017-10-12] MEDS ORDERED: MIDAZOLAM HCL 2 MG/2 ML VIAL ONE ×2 (12:44→12:56)
[2017-10-12] MEDS ORDERED: fentaNYL CITRATE 250 MCG/5 ML AMP ONE (12:44)
[2017-10-12] MEDS: CALCITRIOL 0.25 MCG CAP PO SCH (14:00)
[2017-10-12 14:06] LABS: ANA SCREEN NEG (NEG)
--- NOTE | 2017-10-12 14:58 | RADRPT ---
EXAM DATE/TIME: 10/12/2017 12:50 [facility] COMPARISON: No previous studies available for comparison. INDICATIONS : Acute renal failure. SEDATION TIME: 30 minutes BIOPSY SITE: Right kidney MEDICATION(S): 1.) 4 mg midazolam (Versed) IV 2.) 200 mcg fentanyl (Sublimaze) IV DEVICE(S): 1.) 18 gauge Temno core biopsy needle MEDICAL HISTORY : Cardiovascular disease. Hypertension. SURGICAL HISTORY : None. ENCOUNTER: Initial ACUITY: 1 day PAIN SCORE: 0/10 LOCATION: Right A total of three core specimen(s) were obtained and sent to the laboratory for pathologic evaluation. PROCEDURE: 1. CT guided renal biopsy. 2. Conscious sedation with continuous EKG and oximetry monitoring. 3. EKG and oximetry remained stable throughout the procedure. Prior to the procedure informed consent was obtained. Any appropriate prior imaging studies were rev iewed. Using automated exposure control and adjustment of the mA and/or kV according to patient size, radiat ion dose was kept as low as reasonably achievable to obtain optimal diagnostic quality images. DICOM format image data is available electronically for review and comparison. The site was prepped in a sterile fashion. Full sterile technique was used, including cap, mask, roselyn rile gloves and gown and a large sterile sheet. Hand hygiene and 2% chlorhexidine and/or betadine/al cohol prep was utilized per protocol for cutaneous antisepsis. The skin and subcutaneous tissues wer e infiltrated with local anesthetic solution. With CT guidance the previously identified target was localized. Biopsy was performed using the presc ribed needle as above. Adequate hemostasis was obtained with compression at the puncture site. Follow-up CT scan reveals no hemorrhage. The patient tolerated the procedure well and there were no complications. The patient was returned to the Radiology Outpatient Unit in stable condition. CONCLUSION: Uncomplicated CT guided biopsy. Arash Tovar MD on October 12, 2017 at 14:55 Board Certified Radiologist. This report was verified electronically.
[2017-10-12] MEDS: hydrALAZINE HCL 25 MG TAB PO SCH ×2 (16:18→20:14)
[2017-10-12 17:17] LABS: AUTOMATED NEUTROPHIL # 3.3 TH/MM3 (1.8-7.7); BASOPHIL % 0.6 % (0.0-2.0); EOSINOPHIL # 0.2 TH/MM3 (0-0.4); EOSINOPHIL % 3.2 % (0.0-4.0); HEMATOCRIT 35.7 % (39.0-51.0); HEMOGLOBIN 12.1 GM/DL (13.0-17.0); LYMPH % 19.1 % (9.0-44.0); MEAN CELL VOLUME 86.9 FL (80.0-100.0); MEAN CORPUSCULAR HEMOGLOBIN 29.4 PG (27.0-34.0); MEAN CORPUSCULAR HGB CONC 33.8 % (32.0-36.0); MEAN PLATELET VOLUME 8.6 FL (7.0-11.0); MONOCYTE # 0.6 TH/MM3 (0-0.9); NEUT % 65.1 % (16.0-70.0); PLATELET COUNT 197 TH/MM3 (150-450); RED BLOOD COUNT 4.11 MIL/MM3 (4.50-5.90); RED CELL DISTRIBUTION WIDTH 14.1 % (11.6-17.2); WHITE BLOOD COUNT 5.1 TH/MM3 (4.0-11.0)
[2017-10-12] MEDS ORDERED: DOXAZOSIN MESYLATE 1 MG TAB PO ONE (18:15)
[2017-10-12] MEDS ORDERED: ALPRAZolam 0.5 MG TAB PO PRN (18:45)
--- NOTE | 2017-10-12 18:47 | HHI.PR ---
Subjective Remarks Denies cp/sob. Swelling over partid glands is decreasing. BP severely elevated into the 160's Patient wants to go home - his mother in law . Objective Vitals Vital Signs Date Time Temp Pulse Resp B/P (MAP) Pulse Ox O2 Delivery O2 Flow Rate FiO2 10/12/17 18:00 167/102 (123) 10/12/17 18:00 94 10/12/17 17:00 86 10/12/17 17:00 163/103 (123) 10/12/17 16:00 151/92 (111) 10/12/17 15:30 132/84 (100) 10/12/17 15:15 154/82 (106) 10/12/17 15:12 98.2 82 16 154/82 (106) 98 10/12/17 15:12 82 10/12/17 15:00 78 10/12/17 15:00 152/93 (112) 10/12/17 14:30 162/104 (123) 10/12/17 14:15 156/97 (116) 10/12/17 14:00 144/90 (108) 10/12/17 14:00 78 10/12/17 13:48 73 16 151/95 (113) 97 10/12/17 13:45 151/95 (113) 10/12/17 12:00 74 10/12/17 11:25 79 10/12/17 11:25 98.0 79 18 133/74 (93) 100 10/12/17 11:00 80 10/12/17 10:00 88 10/12/17 09:50 179/116 (137) 10/12/17 09:00 82 10/12/17 07:30 98.0 87 18 189/110 (136) 100 10/12/17 07:30 87 10/12/17 06:24 83 10/12/17 05:06 82 10/12/17 04:34 84 10/12/17 03:39 80 10/12/17 03:39 97.7 83 17 146/82 (103) 96 10/12/17 02:33 80 10/12/17 01:17 84 10/12/17 00:04 94 10/11/17 23:48 98.1 84 17 173/99 (123) 99 10/11/17 23:00 89 10/11/17 22:00 92 10/11/17 21:20 91 10/11/17 20:15 89 10/11/17 20:15 97.9 87 16 191/115 (140) 98 10/11/17 19:20 97 I/O 10/11/17 10/11/17 10/11/17 10/12/17 10/12/17 10/12/17 07:00 15:00 23:00 07:00 15:00 23:00 Intake Total 720 ml 950 ml 480 ml 540 ml Output Total 350 ml 800 ml Balance 370 ml 950 ml 480 ml -260 ml Intake Oral 720 ml 950 ml 480 ml 540 ml Output Urine Total 350 ml 800 ml # Voids 4 4 2 # Bowel Movements 0 0 0 Result Diagram: 10/12/17 1647 10/12/17 0421 Imaging Last Impressions Renal Biopsy CT 10/11/17 0000 Signed Impressions: Service Date/Time: Thursday, October 12, 2017 12:50 - CONCLUSION: Uncomplicated CT guided biopsy. Arash Tovar MD Renal Ultrasound 10/09/17 0000 Signed Impressions: Service Date/Time: Monday, October 09, 2017 08:21 - CONCLUSION: 1. Kidneys are borderline echogenic which can be seen with medical renal disease. 2. Simple right renal cyst. 3. Possible nonobstructing calculus left kidney measures 3 mm. Onofre Salinas MD Chest X-Ray 10/08/171953 Signed Impressions: Service Date/Time: Sunday, October 08, 2017 20:16 - CONCLUSION: Question of mild haziness lung bases and possibility of mild case of pulmonary edema is difficult to exclude. Tariq Becker MD Objective Remarks AAOx3 Enlarged, non tender BL parotid glands which are less indurated and swollen when compared to the previous day. Clear lungs BL S1S2 RRR, no MRG soft abdomen, BS (+) no edema in lower extremities Procedures none Medications and IVs Current Medications Medications (Trade) Dose Ordered Sig/Jossue Route Start Time Stop Time Status Last Admin (Nitroglycerin 2% Oint) 1 inch Q6HR TOPICAL 10/09/17 00:00 10/12/17 18:05 (Norvasc) 10 mg DAILY PO 10/09/17 09:00 10/12/17 08:05 (Coreg) 25 mg Q12HR PO 10/09/17 09:00 10/12/17 08:06 (Imdur) 60 mg BID@07,21 PO 10/09/17 07:00 10/12/17 05:46 (NS Flush) 2 ml UNSCH PRN IV FLUSH 10/09/17 00:15 (NS Flush) 2 ml BID IV FLUSH 10/09/17 09:00 10/12/17 09:59 (Tylenol) 650 mg Q6H PRN PO 10/09/17 00:15 10/09/17 13:02 (Mission 5-325 Mg) 1 tab Q4H PRN PO 10/09/17 00:15 10/12/17 09:59 (Zofran Inj) 4 mg Q6H PRN IV PUSH 10/09/17 00:15 10/09/17 08:17 (Duoneb Neb) 1 ampule Q6HR NEB INH 10/09/17 04:00 10/12/17 10:42 (Albuterol Neb) 2.5 mg Q2HR NEB PRN INH 10/09/17 00:15 (Heparin Inj) 5,000 units Q12H SQ 10/09/17 06:00 10/12/17 18:05 Miscellaneous Information 1 Q361D XX 10/09/17 00:15 10/09/17 00:15 (Chlorhexidine 2% Cloth) 3 pack Taper DAILY@04 TOP 10/09/17 04:00 10/05/18 03:59 10/09/17 04:00 (Chlorhexidine 2% Cloth) 3 pack UNSCH PRN TOP 10/09/17 00:15 (Shayna-Colace) 1 tab BID PO 10/09/17 09:00 10/12/17 08:05 (Milk Of Magnesia Liq) 30 ml Q12H PRN PO 10/09/17 00:15 (Senokot) 17.2 mg Q12H PRN PO 10/09/17 00:15 (Dulcolax Supp) 10 mg DAILY PRN RECTAL 10/09/17 00:15 (Lactulose Liq) 30 ml DAILY PRN PO 10/09/17 00:15 (Trandate Inj) 20 mg Q15M PRN IV PUSH 10/09/17 09:45 10/10/17 22:20 (Apresoline Inj) 10 mg Q30M PRN IV PUSH 10/09/17 09:45 10/12/17 18:09 (Benadryl) 25 mg Q6H PRN PO 10/10/17 01:15 10/12/17 08:09 (Aldactone) 25 mg DAILY PO 10/10/17 12:00 10/12/17 08:05 (Pepcid) 10 mg Q12HR PO 10/10/17 21:00 10/12/17 08:06 (Rocaltrol) 0.25 mcg DAILY PO 10/12/17 09:00 10/12/17 14:00 (Apresoline) 25 mg Q8HR PO 10/12/17 14:00 10/12/17 16:18 (Cardura) 3 mg DAILY PO 10/13/17 09:00 A/P Problem List: (1) Hypertensive emergency ICD Code: I16.1 - Hypertensive emergency Status: Acute Plan: The patient initially was admitted to the intensive care unit and started on Cardene drip to target initial reduction mean arterial pressure of 25 -30%, MIP less than 120. Patient also started on nitroglycerin paste. Imdur, Norvasc, Coreg resumed. Chest x-ray showed pulmonary edema, status post Lasix 40 mg IV. EKG sinus tachycardia rate of 106. LVH by voltage criteria. Nonspecific ST changes in V5 V6. No ST elevation. Echo 03/27/15-03/27/15ejection fraction 30-35% with diffuse hypokinesis. Mild to moderate MR. Exercise Stress 03/18/12negative. Prior workup for secondary hypertension included negative workup for pheo, normal aldosterone and renin. Consider imaging for renal artery stenosis. Urine toxicology screen is so far positive for cannabinoids. Continue current antihypertensive medications with amlodipine, carvedilol, spironolactone. 10/11 BP severely elevated with a bp of 188/117 - Continue above medications and start on Cardura 2 mg po daily. continue to monitor vital signs. 10/12 BP is still elevated. The patient has been started on hydralazine 25 mg p.o. 3 times daily and nephrology, however the blood pressure still elevated. I will order 1 dose of Cardura 1 mg p.o. once if systolic blood pressure maintains above 150 and increase the daily dose of Cardura from 2 mg p.o. daily to 3 mg p.o. daily. (2) Parotitis ICD Code: K11.20 - Sialoadenitis, unspecified Plan: The patient has painless swelling of bilateral parotid glands. Suspect likely due to a sialolith. Patient is afebrile and there is no tenderness to palpation. Anti-consulted, recommendations pending. (3) Hypokalemia ICD Code: E87.6 - Hypokalemia Status: Acute Plan: Hypokalemia resolved. continue to monitor BMP and replace potassium as needed. (4) Acute kidney injury ICD Code: N17.9 - Acute kidney injury Status: Acute Plan: Nephrology consulted. Creatinine elevated at 5.1. Patient has chronic kidney disease stage IV with previous baseline creatinine of 2.07 in 2016. Acute kidney injury on chronic kidney disease stage IV versus progressive kidney disease secondary to hypertensive nephropathy. Kidney ultrasound and consistent with medical renal disease area there is a simple right renal cyst. Possible nonobstructing calculus in the left kidney which measures 3 mm. 10/12 the patient is status post kidney biopsy. Patient may need dialysis soon. Follow-up pathology. (5) Hyperglycemia ICD Code: R73.9 - Hyperglycemia, unspecified Status: Acute Plan: Blood glucose has been slightly elevated. I will check hemoglobin A1c. Assessment and Plan GI prophylaxis: PPI. DVT prophylaxis: SCDs. Discharge Planning ENT consulted. Pending improvement of blood pressure. Kameron Cooper MD Oct 12, 2017 18:47
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
[2017-10-12 20:44] LABS: AUTOMATED NEUTROPHIL # 4.7 TH/MM3 (1.8-7.7); BASOPHIL % 0.7 % (0.0-2.0); EOSINOPHIL # 0.2 TH/MM3 (0-0.4); EOSINOPHIL % 2.5 % (0.0-4.0); HEMOGLOBIN 11.8 GM/DL (13.0-17.0); LYMPH % 13.2 % (9.0-44.0); LYMPHOCYTE # 0.9 TH/MM3 (1.0-4.8); MEAN CELL VOLUME 86.8 FL (80.0-100.0); MEAN CORPUSCULAR HEMOGLOBIN 29.3 PG (27.0-34.0); MEAN CORPUSCULAR HGB CONC 33.7 % (32.0-36.0); MEAN PLATELET VOLUME 8.7 FL (7.0-11.0); MONO % 11.5 % (0.0-8.0); MONOCYTE # 0.7 TH/MM3 (0-0.9); NEUT % 72.1 % (16.0-70.0); PLATELET COUNT 211 TH/MM3 (150-450); RED BLOOD COUNT 4.03 MIL/MM3 (4.50-5.90); RED CELL DISTRIBUTION WIDTH 14.5 % (11.6-17.2); WHITE BLOOD COUNT 6.5 TH/MM3 (4.0-11.0)
[2017-10-13] VITALS (14 sets, daily range): BP systolic 144–163; BP diastolic 85–101; PULSE 81–96; RESP 16; TEMP 98–98.4; O2SAT 97–100
[2017-10-13] MEDS: ACETAMINOPHEN/HYDROcodone 325 MG/5 MG TAB PO PRN (03:46)
[2017-10-13] MEDS: CHLORHEXIDINE GLUCONATE 2 % 1 PACK (2 CLOTHS) TOP SCH (04:00)
[2017-10-13] MEDS: hydrALAZINE HCL 25 MG TAB PO SCH (06:00)
[2017-10-13] MEDS: NITROGLYCERIN 2% OINT 1 GM PACKET TOPICAL SCH ×2 (06:00→12:00)
[2017-10-13] MEDS: ISOSORBIDE MONONITRATE 60 MG TAB PO SCH (06:00)
[2017-10-13] MEDS: HEPARIN SODIUM - SQ 10,000 UNITS/ML VIAL SQ SCH (06:02)
[2017-10-13 08:11] LABS: BICARBONATE 30.7 MEQ/L (21.0-32.0); CALCIUM 9.5 MG/DL (8.5-10.1); CREATININE 5.73 MG/DL (0.60-1.30)
--- NOTE | 2017-10-13 08:49 | HHI.PR ---
Subjective Remarks denies cp, sob, headache, dizziness. Wants to go home Objective Vitals Vital Signs Date Time Temp Pulse Resp B/P (MAP) Pulse Ox O2 Delivery O2 Flow Rate FiO2 10/13/17 08:00 88 10/13/17 07:42 98.0 86 16 163/101 (121) 98 10/13/17 07:00 96 10/13/17 06:27 81 10/13/17 05:11 88 10/13/17 04:01 89 10/13/17 03:58 98.4 96 16 161/88 (112) 97 10/13/17 03:17 83 10/13/17 02:09 84 10/13/17 01:53 81 10/13/17 00:23 81 10/12/17 23:40 89 10/12/17 23:40 98.3 89 17 144/78 (100) 99 10/12/17 22:14 87 10/12/17 21:44 94 10/12/17 20:15 94 10/12/17 19:35 98.0 96 17 170/99 (122) 99 10/12/17 19:35 97 10/12/17 18:00 167/102 (123) 10/12/17 18:00 94 10/12/17 17:00 86 10/12/17 17:00 163/103 (123) 10/12/17 16:00 151/92 (111) 10/12/17 15:30 132/84 (100) 10/12/17 15:15 154/82 (106) 10/12/17 15:12 98.2 82 16 154/82 (106) 98 10/12/17 15:12 82 10/12/17 15:00 78 10/12/17 15:00 152/93 (112) 10/12/17 14:30 162/104 (123) 10/12/17 14:15 156/97 (116) 10/12/17 14:00 144/90 (108) 10/12/17 14:00 78 10/12/17 13:48 73 16 151/95 (113) 97 10/12/17 13:45 151/95 (113) 10/12/17 12:00 74 10/12/17 11:25 79 10/12/17 11:25 98.0 79 18 133/74 (93) 100 2/7/18 11:00 80 10/12/17 10:00 88 10/12/17 09:50 179/116 (137) 10/12/17 09:00 82 I/O 10/12/17 10/12/17 10/12/17 10/13/17 10/13/17 10/13/17 07:00 15:00 23:00 07:00 15:00 23:00 Intake Total 480 ml 540 ml 480 ml Output Total 800 ml 1025 ml Balance 480 ml -260 ml -545 ml Intake Oral 480 ml 540 ml 480 ml Output Urine Total 800 ml 1025 ml # Voids 2 # Bowel Movements 0 0 Result Diagram: 10/12/17200410/13/17 0743 Imaging Last Impressions Renal Biopsy CT 10/11/17 0000 Signed Impressions: Service Date/Time: Thursday, October 12, 2017 12:50 - CONCLUSION: Uncomplicated CT guided biopsy. Arash Tovar MD Renal Ultrasound 10/09/17 0000 Signed Impressions: Service Date/Time: Monday, October 09, 2017 08:21 - CONCLUSION: 1. Kidneys are borderline echogenic which can be seen with medical renal disease. 2. Simple right renal cyst. 3. Possible nonobstructing calculus left kidney measures 3 mm. Onofre Salinas MD Chest X-Ray 10/08/171953 Signed Impressions: Service Date/Time: Sunday, October 08, 2017 20:16 - CONCLUSION: Question of mild haziness lung bases and possibility of mild case of pulmonary edema is difficult to exclude. Tariq Becker MD Objective Remarks AAOx3 Enlarged, non tender BL parotid glands which are less indurated and swollen when compared to the previous day. Clear lungs BL S1S2 RRR, no MRG soft abdomen, BS (+) no edema in lower extremities Procedures none Medications and IVs Current Medications Medications (Trade) Dose Ordered Sig/Jossue Route Start Time Stop Time Status Last Admin (Nitroglycerin 2% Oint) 1 inch Q6HR TOPICAL 10/09/17 00:00 10/12/17 18:05 (Norvasc) 10 mg DAILY PO 10/09/17 09:00 10/13/17 08:57 (Coreg) 25 mg Q12HR PO 10/09/17 09:00 10/13/17 08:57 (Imdur) 60 mg BID@07,21 PO 10/09/17 07:00 10/13/17 06:00 (NS Flush) 2 ml UNSCH PRN IV FLUSH 10/09/17 00:15 (NS Flush) 2 ml BID IV FLUSH 10/09/17 09:00 10/13/17 08:58 (Tylenol) 650 mg Q6H PRN PO 10/09/17 00:15 10/09/17 13:02 ([place] 5-325 Mg) 1 tab Q4H PRN PO 10/09/17 00:15 10/13/17 03:46 (Zofran Inj) 4 mg Q6H PRN IV PUSH 10/09/17 00:15 10/09/17 08:17 (Albuterol Neb) 2.5 mg Q2HR NEB PRN INH 10/09/17 00:15 (Heparin Inj) 5,000 units Q12H SQ 10/09/17 06:00 10/13/17 06:02 Miscellaneous Information 1 Q361D XX 10/09/17 00:15 10/09/17 00:15 (Chlorhexidine 2% Cloth) 3 pack Taper DAILY@04 TOP 10/09/17 04:00 10/05/18 03:59 10/09/17 04:00 (Chlorhexidine 2% Cloth) 3 pack UNSCH PRN TOP 10/09/17 00:15 (Shayna-Colace) 1 tab BID PO 10/09/17 09:00 10/12/17 08:05 (Milk Of Magnesia Liq) 30 ml Q12H PRN PO 10/09/17 00:15 (Senokot) 17.2 mg Q12H PRN PO 10/09/17 00:15 (Dulcolax Supp) 10 mg DAILY PRN RECTAL 10/09/17 00:15 (Lactulose Liq) 30 ml DAILY PRN PO 10/09/17 00:15 (Trandate Inj) 20 mg Q15M PRN IV PUSH 10/09/17 09:45 10/10/17 22:20 (Apresoline Inj) 10 mg Q30M PRN IV PUSH 10/09/17 09:45 10/12/17 18:09 (Benadryl) 25 mg Q6H PRN PO 10/10/17 01:15 10/12/17 08:09 (Aldactone) 25 mg DAILY PO 10/10/17 12:00 10/13/17 08:57 (Pepcid) 10 mg Q12HR PO 10/10/17 21:00 10/13/17 08:57 (Rocaltrol) 0.25 mcg DAILY PO 10/12/17 09:00 10/13/17 08:57 (Xanax) 0.5 mg Q8H PRN PO 10/12/17 18:45 10/12/17 20:14 (Cleocin) 600 mg Q8HR PO 10/13/17 12:45 (Cardura) 4 mg DAILY PO 10/14/17 09:00 UNV (Apresoline) 50 mg Q8HR PO 10/13/17 14:00 UNV A/P Problem List: (1) Hypertensive emergency ICD Code: I16.1 - Hypertensive emergency Status: Acute Plan: The patient initially was admitted to the intensive care unit and started on Cardene drip to target initial reduction mean arterial pressure of 25 -30%, MIP less than 120. Patient also started on nitroglycerin paste. Imdur, Norvasc, Coreg resumed. Chest x-ray showed pulmonary edema, status post Lasix 40 mg IV. EKG sinus tachycardia rate of 106. LVH by voltage criteria. Nonspecific ST changes in V5 V6. No ST elevation. Echo 03/27/15-03/27/15ejection fraction 30-35% with diffuse hypokinesis. Mild to moderate MR. Exercise Stress 03/18/12negative. Prior workup for secondary hypertension included negative workup for pheo, normal aldosterone and renin. Consider imaging for renal artery stenosis. Urine toxicology screen is so far positive for cannabinoids. Continue current antihypertensive medications with amlodipine, carvedilol, spironolactone. 10/11 BP severely elevated with a bp of 188/117 - Continue above medications and start on Cardura 2 mg po daily. continue to monitor vital signs. 10/12 BP is still elevated. The patient has been started on hydralazine 25 mg p.o. 3 times daily and nephrology, however the blood pressure still elevated. I will order 1 dose of Cardura 1 mg p.o. once if systolic blood pressure maintains above 150 and increase the daily dose of Cardura from 2 mg p.o. daily to 3 mg p.o. daily. 10/13 BP still elevated with a SBP in the 160's however, patient has not gotten am medications yet. Will await for bp improvement and will DC home if SBP is less than 150 x2 readings. (2) Parotitis ICD Code: K11.20 - Sialoadenitis, unspecified Plan: The patient has painless swelling of bilateral parotid glands. Suspect likely due to a sialolith. Patient is afebrile and there is no tenderness to palpation. Anti-consulted, recommendations pending. 10/13 Appreciate ENT consultation. As per ENT etiology not clear recommended Clindamycin 600 mg every 8 hrs. Will fu as an outpatient. Suggested possible autoinmune etiology. Patient had an MONET which is negative, anti-proteinase and antimyeloperoxidase as well as glomerular basement membrane IgG are pending. Complement C3 and C4 normal. (3) Hypokalemia ICD Code: E87.6 - Hypokalemia Status: Acute Plan: Hypokalemia resolved. continue to monitor BMP and replace potassium as needed. (4) Acute kidney injury ICD Code: N17.9 - Acute kidney injury Status: Acute Plan: Nephrology consulted. Creatinine elevated at 5.1. Patient has chronic kidney disease stage IV with previous baseline creatinine of 2.07 in 2016. Acute kidney injury on chronic kidney disease stage IV versus progressive kidney disease secondary to hypertensive nephropathy. Kidney ultrasound and consistent with medical renal disease area there is a simple right renal cyst. Possible nonobstructing calculus in the left kidney which measures 3 mm. 10/12 the patient is status post kidney biopsy. Patient may need dialysis soon. Follow-up pathology. 10/13 creatinine is elevated from 5.2-5.7, continue to monitor BUN and creatinine. Discharge pending nephrology clearance. (5) Hyperglycemia ICD Code: R73.9 - Hyperglycemia, unspecified Status: Acute Plan: Blood glucose has been slightly elevated. I will check hemoglobin A1c. 10/13 hemoglobin A1c pending. Assessment and Plan GI prophylaxis: PPI. DVT prophylaxis: SCDs. Discharge Planning ENT consulted. Pending improvement of blood pressure. Kameron Cooper MD Oct 13, 2017 08:49
[2017-10-13] MEDS: CALCITRIOL 0.25 MCG CAP PO SCH (08:57)
[2017-10-13] MEDS: SPIRONOLACTONE 25 MG TAB PO SCH (08:57)
[2017-10-13] MEDS: FAMOTIDINE 20 MG TAB PO SCH (08:57)
[2017-10-13] MEDS: CARVEDILOL 12.5 MG TAB PO SCH (08:57)
[2017-10-13] MEDS: DOCUSATE SODIUM 50 MG/SENNA 8.6 MG TAB PO SCH (08:58)
[2017-10-13] MEDS: SODIUM CHLORIDE 0.9% FLUSH 10 ML FLUSH IV FLUSH SCH (08:58)
[2017-10-13] MEDS ORDERED: DOXAZOSIN MESYLATE 1 MG TAB PO SCH (09:00)
[2017-10-13] MEDS ORDERED: CLINDAMYCIN 150 MG CAP PO SCH (12:45)
[2017-10-13] MEDS ORDERED: CLIN150 PO (13:28)
[2017-10-13] MEDS ORDERED: CARD1TAB PO (13:28)
--- NOTE | 2017-10-13 13:29 | HHI.DCPOC ---
Discharge Care Plan Diagnosis: (1) Hyperglycemia (2) Acute kidney injury (3) Parotitis (4) Hypertensive urgency (5) CKD (chronic kidney disease) stage 4, GFR 15-29 ml/min (6) Hypertensive emergency (7) Elevated troponin (8) Pulmonary edema Goals to Promote Your Health * To prevent worsening of your condition and complications * To maintain your health at the optimal level Directions to Meet Your Goals Take your medications as prescribed Follow your dietary instruction Follow activity as directed Keep your appointments as scheduled Take your immunizations and boosters as scheduled If your symptoms worsen call your PCP, if no PCP go to Urgent Care Center or Emergency Room Smoking is Dangerous to Your Health. Avoid second hand smoke Call the 24-hour hour crisis hotline for domestic abuse at Kameron Cooper MD Oct 13, 2017 13:28
[2017-10-13] MEDS ORDERED: DOXAZOSIN MESYLATE 1 MG TAB PO ONE (13:30)
--- NOTE | 2017-10-13 13:47 | HHI.DS ---
Discharge Summary Admission Date Oct 08, 2017 at 21:59 Discharge Date: Oct 13, 2017 Admitting Diagnosis Hypertensive emergency, renal failure, elevated trop, pulmonaryedema (1) Hypertensive emergency ICD Codes: I16.1 - Hypertensive emergency Status: Acute (2) Parotitis ICD Codes: K11.20 - Sialoadenitis, unspecified (3) Hypokalemia ICD Codes: E87.6 - Hypokalemia Status: Acute (4) Acute kidney injury ICD Codes: N17.9 - Acute kidney injury Status: Acute (5) Hyperglycemia ICD Codes: R73.9 - Hyperglycemia, unspecified Status: Acute CBC/BMP: 10/12/17200410/13/17 0743 Significant Findings Laboratory Tests Test 10/11/17 04:10 10/12/17 04:21 10/12/17 16:47 10/12/17 20:05 Red Blood Count 4.05 MIL/MM3 (4.50-5.90) 4.07 MIL/MM3 (4.50-5.90) 4.11 MIL/MM3 (4.50-5.90) 4.03 MIL/MM3 (4.50-5.90) Hemoglobin 11.9 GM/DL (13.0-17.0) 11.9 GM/DL (13.0-17.0) 12.1 GM/DL (13.0-17.0) 11.8 GM/DL (13.0-17.0) Hematocrit 34.8 % (39.0-51.0) 35.2 % (39.0-51.0) 35.7 % (39.0-51.0) 35.0 % (39.0-51.0) Blood Urea Nitrogen 42 MG/DL (7-18) 40 MG/DL (7-18) Creatinine 5.39 MG/DL (0.60-1.30) 5.29 MG/DL (0.60-1.30) Random Glucose 123 MG/DL (74-106) 110 MG/DL (74-106) Sodium Level 135 MEQ/L (136-145) 134 MEQ/L (136-145) Estimat Glomerular Filtration Rate 15 ML/MIN (>89) 15 ML/MIN (>89) Parathyroid Hormone (Intact) 225.6 PG/ML (12.4-76.8) Monocytes (%) (Auto) 12.0 % (0.0-8.0) 11.5 % (0.0-8.0) Neutrophils (%) (Auto) 72.1 % (16.0-70.0) Lymphocytes # (Auto) 0.9 TH/MM3 (1.0-4.8) Test 10/13/17 07:43 Blood Urea Nitrogen 42 MG/DL (7-18) Creatinine 5.73 MG/DL (0.60-1.30) Sodium Level 133 MEQ/L (136-145) Anion Gap 4 MEQ/L (5-15) Estimat Glomerular Filtration Rate 14 ML/MIN (>89) Imaging Last Impressions Renal Biopsy CT 10/11/17 0000 Signed Impressions: Service Date/Time: Thursday, October 12, 2017 12:50 - CONCLUSION: Uncomplicated CT guided biopsy. Arash Tovar MD Renal Ultrasound 10/09/17 0000 Signed Impressions: Service Date/Time: Monday, October 09, 2017 08:21 - CONCLUSION: 1. Kidneys are borderline echogenic which can be seen with medical renal disease. 2. Simple right renal cyst. 3. Possible nonobstructing calculus left kidney measures 3 mm. Onofre Salinas MD Chest X-Ray 10/08/171953 Signed Impressions: Service Date/Time: Sunday, October 08, 2017 20:16 - CONCLUSION: Question of mild haziness lung bases and possibility of mild case of pulmonary edema is difficult to exclude. Tariq Becker MD Pt Condition on Discharge: Stable Discharge Disposition: Discharge Home Discharge Instructions DIET: Follow Instructions for: Renal Failure Diet, Low Sodium Diet Follow up Referrals: Ear Nose Throat - 2 Weeks with Michelet Kurtz MD Nephrology - 2-3 Days with Ajith Griffith MD New Medications: Clindamycin (Cleocin) 150 Mg Cap 600 MG PO Q8HR for Infection, #21 CAP Doxazosin (Cardura) 1 Mg Tab 4 MG PO DAILY for Blood Pressure Management, #30 TAB Continued Medications: Amlodipine Besylate (Norvasc) 10 Mg Tab 10 MG PO DAILY for htn, #30 TAB 2 Refills Aspirin (Aspirin 325 Mg Tab) 325 Mg Tab 325 MG PO DAILY for cad for 30 Days, TAB Carvedilol 12.5 mg (Coreg 12.5 mg) 12.5 Mg Tab 25 MG PO Q12HR for cam, htn , #60 TAB 2 Refills Clonidine Hcl (Catapres) 0.1 Mg Tab 0.1 MG PO q8h for htn, #90 TAB 2 Refills Cyclobenzaprine Hcl (Flexeril) 10 Mg Tab 10 MG PO TID PRN for SPASM, #30 TAB Isosorbide Mononitrate (Imdur 60 Mg) 60 Mg Tabcr 60 MG PO BID@07,21 for htn, #60 TAB.SR 2 Refills Kameron Cooper MD Oct 13, 2017 13:47
[2017-10-13] MEDS ORDERED: hydrALAZINE HCL 25 MG TAB PO SCH (14:00)
[2017-10-13 16:53] LABS: HEMOGLOBIN A1C 5.2 % (4.3-6.0)
[2017-10-13 17:53] LABS: GLOMERULAR BASEMENT MEMBRAN AB <1.0 AI (<1.0)
[2017-10-14] MEDS ORDERED: DOXAZOSIN MESYLATE 1 MG TAB PO SCH (09:00)
== END 2017-10-13 13:54 | disposition left against medical advice (07) | DRG 305 ==
LOC: NEPC 19:44 → NEDA 21:59 → HIMN 23:30 → HCPC 10-09 23:24
PROVIDERS: ADMIT Hospitalist; ATTEND Hospitalist
PROC: 0TB03ZX Excision of Right Kidney, Percutaneous Approach, Diagnostic (ICD-10-PCS; principal; 2017-10-12)
DX: I16.1 Hypertensive emergency (principal); N17.9 Acute kidney failure, unspecified; I13.0 Hypertensive heart and chronic kidney disease with heart failure and stage 1 through stage 4 chronic kidney disease, or unspecified chronic kidney disease; I50.22 Chronic systolic (congestive) heart failure; N18.4 Chronic kidney disease, stage 4 (severe); Z91.14 Patient's other noncompliance with medication regimen; R73.9 Hyperglycemia, unspecified; K11.20 Sialoadenitis, unspecified; E87.6 Hypokalemia; F12.90 Cannabis use, unspecified, uncomplicated; F41.9 Anxiety disorder, unspecified
CPT/HCPCS: 50200; 71045; 76775; 77012; 80048; 80061; 80074; 80076; 80307; 81001; 82550; 82552; 82570; 83036; 83520; 83605; 83735; 83880; 83930; 83935; 83970; 84100; 84156; 84300; 84443; 84484; 84540; 85025; 85027; 85610; 85730; 86021; 86038; 86160; 87040; 87086; 87205; 87641; 87804; 93005; 93306; 94640; 94664; 96365; 96375; G0481; J0360; J1644; J1940; J2060; J2250; J2405; J3010; J7050